=== PATIENT | male | born 1940 | race Caucasian/White ===

== ENCOUNTER 2016-12-01 11:35 | Outpatient (CLI) | payer MEDICARE ==
[2016-12-01 12:12] LABS: Hemoglobin 13.9 g/dL (14.0-18.0); Mean Corpuscular Hemoglobin 30.4 pg (27.0-31.0); Platelet Count 126 thou/uL (130-400); RBC Distribution Width 11.5 % (11.5-14.5); Red Blood Cell (RBC) Count 4.56 mill/uL (4.70-6.10)
[2016-12-01 12:18] LABS: ALT (SGPT) 11 U/L (0-55); AST (SGOT) 13 U/L (5-34); Albumin 3.7 g/dL (3.4-4.8); Alkaline Phosphatase 122 U/L (40-150); Anion Gap 14 mmol/L (10-20); BUN (Urea Nitrogen) 13 mg/dL (8.4-25.7); Bilirubin, Total 1.1 mg/dL (0.2-1.2); Calc. Creatinine Clearance 0 mL/min (70-130); Calcium 8.6 mg/dL (7.8-10.44); Carbon Dioxide 22 mmol/L (23-31); Chloride 105 mmol/L (98-107); Estimated GFR-MDRD 83; Globulin 2.7 g/dL (2.4-3.5); Glucose 108 mg/dL (83-110); Potassium 3.4 mmol/L (3.5-5.1); Protein, Total 6.4 g/dL (5.8-8.1); Sodium 138 mmol/L (136-145)
== END 2016-12-01 11:36 | disposition home or self-care (01) ==
LOC: MADLABBHPM 11:35
PROVIDERS: ATTEND Family Medicine
DX: I69.354 Hemiplegia and hemiparesis following cerebral infarction affecting left non-dominant side (principal); F03.90 Unspecified dementia, unspecified severity, without behavioral disturbance, psychotic disturbance, mood disturbance, and anxiety; R63.0 Anorexia; I10 Essential (primary) hypertension; R26.2 Difficulty in walking, not elsewhere classified
CPT/HCPCS: 36415; 80053; 82746; 84443; 85027

== ENCOUNTER 2017-03-04 07:32 | Outpatient (CLI) | payer MEDICARE ==
--- NOTE | 2017-03-04 09:55 | ULT ---
ABDOMINAL ULTRASOUND: DTAE: 03/04/17. COMPARISON: None. HISTORY: Abdominal distention, epigastric pain. TECHNIQUE: Multiplanar, britt scale, sonographic imaging of the abdomen obtained. FINDINGS: The proximal abdominal aorta is obscured by bowel gas. Visualized abdominal aorta and IVC appear gr ossly unremarkable. The pancreas is not well assessed secondary to bowel gas. No focal liver lesion or intrahepatic biliary dilatation is noted. Common bile duct appears normal in caliber measuring approximately 3 mm. The right kidney appears relatively atrophic, measuring 7.1 x 3.6 x 3.0 cm. No right renal mass, hy dronephrosis, or stone seen. The left kidney measured 11.3 x 5.0 x 3.4 cm and demonstrates no stone , hydronephrosis, or mass lesion. The spleen is enlarged measuring up to 14.5 cm. Gallbladder appe ars surgically absent. IMPRESSION: 1. Status post cholecystectomy. 2. Limited assessment of the upper abdomen secondary to bowel gas. 3. Nonspecific splenomegaly. 4. Atrophy of the right kidney. POS: [facility]
== END 2017-03-04 07:33 | disposition home or self-care (01) ==
LOC: MADULT 07:32
PROVIDERS: ATTEND Family Medicine
DX: R14.0 Abdominal distension (gaseous) (principal); R16.1 Splenomegaly, not elsewhere classified; N26.1 Atrophy of kidney (terminal); Z90.49 Acquired absence of other specified parts of digestive tract
CPT/HCPCS: 76700

== ENCOUNTER 2017-03-25 10:46 | Outpatient (CLI) | payer MEDICARE | END 2017-03-25 10:47 | disposition home or self-care (01) | LOC: MADLABBHPM 10:46 | PROVIDERS: ATTEND Family Medicine | DX: R14.0 Abdominal distension (gaseous) (principal) | CPT/HCPCS: 36415; 82565 ==

== ENCOUNTER 2017-03-26 08:01 | Outpatient (CLI) | payer MEDICARE ==
--- NOTE | 2017-03-26 10:52 | CT ---
CT OF ABDOMEN AND PELVIS PERFORMED WITH INTRAVENOUS CONTRAST ENHANCEMENT: History: Abdominal pain and bloating x 2 months. Bloody stools. FINDINGS: The lung bases show some linear scar or atelectasis in the right base. The liver and spleen show no focal abnormalities. The spleen measures 14.6 cm in length. The pancreas region is unremarkable. The gallbladder has been removed. Right and left adrenal glands and right and left kidneys are normal in size. There is no significant periaortic or mesenteric adenopathy. There is some minimal caleb mesentery present. I do not see an y ancillary findings associated with this. Diverticular disease of the colon is particularly severe in the descending and sigmoid region without any definite signs for diverticulitis. Sigmoid colon is somewhat decompressed. CT OF PELVIS PERFORMED WITH CONTRAST ENHANCEMENT: The prostate is prominent. There is no significant adenopathy or mass. The appendix is unremarkable. IMPRESSION: 1. Fairly pronounced colonic diverticulosis, particularly of the descending sigmoid colon region wit hout any definite acute process. 2. Enlarged prostate. 3. Mild splenomegaly. 4. Post op cholecystectomy change. POS: [facility]
[2017-03-26] MEDS ORDERED: Iopamidol 370 76% 100 ML VIAL ONE (18:02)
== END 2017-03-26 08:02 | disposition home or self-care (01) ==
LOC: MADCT 08:01
PROVIDERS: ATTEND Family Medicine
DX: R14.0 Abdominal distension (gaseous) (principal); K57.90 Diverticulosis of intestine, part unspecified, without perforation or abscess without bleeding; N40.0 Benign prostatic hyperplasia without lower urinary tract symptoms; R16.1 Splenomegaly, not elsewhere classified; Z98.890 Other specified postprocedural states
CPT/HCPCS: 74177